=== PATIENT | female | born 2000 | race African-American/Black ===

== ENCOUNTER 2023-02-18 23:40 | Emergency (ER) | payer OTHER ==
--- NOTE | 2023-02-19 00:11 | ED Physician Documentation ---
History of Present Illness - Stated complaint Stated Complaint: PANIC ATTACK - Chief complaint Chief Complaint: MHE - Additonal information Additional information: Patient 22-year-old female presenting to the emergency department via EMS after panic attack. 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 Began to have pressure in her chest which is similar to panic attack she has had in the past. Reports is currently on an SSRI to help with her symptoms. Was evaluated for suicidality approximately 1 month ago but denies suicidality or homicidality at this time. Otherwise reports that she feels well at this time. Denies fevers, chills, chest pain, shortness of breath, abdominal pain, nausea, vomiting, diarrhea, constipation. Review of Systems Constitutional: denies: Fever Eyes: denies: Loss of vision Ears: denies: Loss of hearing Nose: denies: Rhinorrhea / runny nose Throat: denies: Dental pain / toothache Cardiac: denies: Chest pain / pressure Respiratory: denies: Dyspnea GI: denies: Abdominal Pain : denies: Dysuria Musculoskeletal: denies: Neck pain Neurologic: denies: Generalized weakness Psychiatric: reports: Anxiety. denies: Depressed, Suicidal, Homicidal, Hallucinations, Delusions PD PAST MEDICAL HISTORY - Present Medications Home Medications: Ambulatory Orders Medication Instructions Recorded Confirmed Sertraline [Zoloft] 25 mg PO DAILY 02/18/23 02/18/23 traZODone [Desyrel] 02/18/23 - Allergies Allergies/Adverse Reactions: Allergies Allergy/AdvReac Type Severity Reaction Status Date / Time lidocaine Allergy Unknown Verified 02/18/23 23:55 PD ED PE NORMAL - Vitals Vital signs reviewed: Yes - General General: Alert and oriented X 3, No acute distress, Other (Patient speaks in a very soft but otherwise clear voice.) - HEENT HEENT: Atraumatic - Neck Neck: Supple, no meningeal sign - Cardiac Cardiac: RRR - Respiratory Respiratory: No respiratory distress - Abdomen Abdomen: Normal bowel sounds - Female Female : Deferred - Rectal Rectal: Deferred - Back Back: No CVA TTP - Extremities Extremities: No deformity - Neuro Neuro: Alert and oriented X 3, clinical services assistant 2-12 intact, No motor deficit, No sensory deficit, Normal speech - Psych Psych: Normal mood, Normal affect, Other (Denies suicidality, homicidality.) Results - Vitals Vitals: Vital Signs - 24 hr 02/18/23 23:48 Temperature 36.7 C Heart Rate 91 Respiratory 17 Rate Blood Pressure 144/91 H O2 Saturation 99 Oxygen O2 Source Room air PD Medical Decision Making - ED course Complexity details: d/w patient ED course: Patient presents to the emergency department brought in by EMS after panic attack that occurred earlier today. Known history of panic attacks and anxiety disorder. Patient has also been evaluated for suicidality in the past but alexis es suicidality at this time. Otherwise appears clear thinking and does not demonstrate grave disability to self or imminent harm to self or others during my evaluation. Does report that she feels safe going home and that she will be going home with her boyfriend who will be available to help if she has recurrent symptoms. Does report that she has an outpatient team with whom she follows. Will discharge at this time with instructions to return to the emergency department for any new or worsening symptoms. Departure - Departure Disposition: 01 Home, Self Care Clinical Impression: Panic attack Instructions: ED Stress React, ED Panic Attack Comments: Thank you for allowing us the opportunity to care for you this evening at [facility]. Please continue to follow-up carefully with your primary care doctor and outpatient mental health team. If it anytime you have any new or worsening symptoms, recurrent or persistent episodes of anxiety or panic or have thoughts of self-harm or harm to others please return to the emergency department.
[2023-02-19 00:22] VITALS: BP 132/90
== END 2023-02-19 00:22 | disposition home or self-care (01) ==
LOC: ED 23:40
DX: F41.0 Panic disorder [episodic paroxysmal anxiety] (principal)
CPT/HCPCS: 99283

== ENCOUNTER 2023-04-20 12:33 | Outpatient (CLI) | payer OTHER ==
--- NOTE | 2023-04-21 11:26 | MRI Report ---
PROCEDURE: SHOULDER WO - RT INDICATIONS: RIGHT SHOULDER PAIN TECHNIQUE: Noncontrast oblique coronal T2 fast spin echo with fat saturation, oblique sagittal T1 spin echo and T2 fast spin echo with fat saturation, axial T1 spin echo and T2 fast spin echo with fat saturation t hrough the shoulder. COMPARISON: None. FINDINGS: Image quality: Excellent. Rotator cuff: There is intermediate grade partial-thickness tear of the supraspinatus tendon along th e bursal surface at the musculotendinous junction. Moderate tendinosis of the supraspinatus tendon di stally near the humeral attachment. There is mild infraspinatus and subscapularis tendinosis without high-grade tendon tear. No rotator cuff muscle atrophy on sagittal images. Bones and bursae: No bone marrow contusions or fractures. Mild acromioclavicular joint degeneration. The acromion demonstrates conventional anatomy, without an os acromiale. No pathologic subacromial /subdeltoid bursal fluid is present. Capsule and soft tissues: In the absence of intra-articular contrast, the labrum and glenohumeral li gaments appear intact. The long head of the biceps tendon demonstrates normal location and morpholog y. The rotator interval appears normal, without fibrosis. The coracohumeral ligament is normal in t hickness. Small axillary lymph nodes are noted, nonspecific IMPRESSION: 1. Partial-thickness tear and moderate tendinosis of the supraspinatus tendon. 2. Mild tendinosis of the infraspinatus and subscapularis tendons. 3. Mild acromioclavicular joint degeneration. Reviewed by: Sarah Griffin MD on 04/21/2023 11:24 AM PDT Approved by: Sarah Griffin MD on 04/21/2023 11:24 AM PDT Station ID: [id number]
== END 2023-04-20 12:34 | disposition home or self-care (01) ==
LOC: DI 12:33
DX: M75.111 Incomplete rotator cuff tear or rupture of right shoulder, not specified as traumatic (principal); M75.81 Other shoulder lesions, right shoulder; M19.011 Primary osteoarthritis, right shoulder